=== PATIENT | female | born 1990 | race Caucasian/White ===

== ENCOUNTER 2019-05-04 18:36 | Emergency (ER) | payer OTHER ==
[~2019-05-04] VITALS: Ht 177.8 cm; Wt 129.3 kg
[2019-05-04] MEDS ORDERED: ZOLOFT50 MG PO (19:34)
[2019-05-04] MEDS ORDERED: WELLBUTRIN SR150 MG PO (19:34)
[2019-05-04] MEDS ORDERED: SYNTHROID100 MC1 PO (19:35)
[2019-05-04 19:39] LABS: HEMATOCRIT 38.8 % (37.0-47.0); MCH 29.2 pg (26.0-34.0); MCHC 33.5 g/dL (28.0-37.0); RBC 4.46 mil/uL (4.20-5.00); WBC 11.1 thou/uL (4.0-11.0)
[2019-05-04 19:44] LABS: CALCIUM 9.8 mg/dL (8.5-10.1); CREATININE 1.1 mg/dL (0.6-1.0); POTASSIUM 3.7 mmol/L (3.5-5.1)
[2019-05-04] MEDS ORDERED: ZOFRAN ODT4 MG PO ×2 (20:38→20:39)
[2019-05-04 20:57] VITALS: BP 118/67
== END 2019-05-04 21:00 | disposition home or self-care (01) ==
LOC: ER 18:36
PROVIDERS: Emergency Medicine
DX: S06.0X0A Concussion without loss of consciousness, initial encounter (principal); Z88.0 Allergy status to penicillin; W17.89XA Other fall from one level to another, initial encounter; Y92.009 Unspecified place in unspecified non-institutional (private) residence as the place of occurrence of the external cause; Y93.89 Activity, other specified; Y99.8 Other external cause status